=== PATIENT | female | born 1955 | race Caucasian/White ===

== ENCOUNTER 2022-11-17 23:28 | Emergency (ER) | payer OTHER ==
[~2022-11-17] VITALS: Ht 165.1 cm; Wt 90.0 kg
[2022-11-17 23:44] VITALS: O2SAT 96
[2022-11-18] MEDS ORDERED: ONDANSETRON HCL 4MG TABLET PO ONE (00:30)
[2022-11-18 06:45] VITALS: BP 112/59; PULSE 70; RESP 20; TEMP 98.6
== END 2022-11-18 07:12 | disposition home or self-care (01) ==
LOC: ER 11-18 00:51
DX: S09.90XA Unspecified injury of head, initial encounter (principal); E11.9 Type 2 diabetes mellitus without complications; Z88.2 Allergy status to sulfonamides; W07.XXXA Fall from chair, initial encounter; Y93.89 Activity, other specified; Y92.89 Other specified places as the place of occurrence of the external cause; Y99.8 Other external cause status
CPT/HCPCS: 70450; 73030; 73560; 72125; 99285; Q0162